=== PATIENT | male | born 1965 | race Caucasian/White ===

== ENCOUNTER 2018-04-02 18:48 | Emergency (ER) | payer BC, OTHER ==
[~2018-04-02] VITALS: Ht 167.6 cm; Wt 82.2 kg
[2018-04-02 18:58] VITALS: Ht 167.6 cm; Wt 82.2 kg
[2018-04-02] MEDS ORDERED: GELATIN SPONGE 12-7MM ONE (19:09)
[2018-04-02] MEDS ORDERED: LXP10 PO (19:16)
[2018-04-02] MEDS ORDERED: DIPHTHERIA/TETANUS/PERTUSSIS 0.5 ML SYR/VIAL IM. ONE (19:30)
[2018-04-02 19:55] VITALS: BP 117/75; PULSE 67; TEMP 36.8; O2SAT 95
[2018-04-02] MEDS ORDERED: NORCO 5/325MG HOME PACK PO ONE (20:00)
--- NOTE | 2018-04-02 21:48 | EMERGENCY ROOM VISIT NOTE ---
ED Visit Note First contact with patient: 19:01 Chief complaint: Left ring finger laceration HPI: This 53-year-old white male presents for evaluation of a laceration to the left ring finger. The patient was slicing cabbage for [employer] on a meat cutting wheel. He accidentally ran the dorsum of the ring finger tip through the wheel. This occurred around 1 PM. Bleeding was controlled with pressure. They deny any numbness, tingling, or loss of motion. No other complaints. Tetanus is believed to be out of-date. Pain is 5/10. His accompanies him today. Supplemental sheet was reviewed. Previous surgeries: None Medical history: Significant for rotator cuff disease and GERD, otherwise unremarkable Current Medications: Escitalopram Allergies: NKDA Tetanus: Greater than 10 years Family History: Noncontributory. Social History: Employed. . Positive [employer] use. REVIEW OF SYSTEM: HEENT: No dizziness, visual problems, hearing loss, or tinnitus. There is no difficulty swallowing and no oral lesions are present. PULMONARY: No cough, shortness of breath, sputum production or hemoptysis. CARDIOVASCULAR: No chest pain, palpitations, shortness of breath or peripheral edema. GASTROINTESTINAL: No diarrhea, constipation, nausea, vomiting, or abdominal pain. GENITOURINARY: No dysuria, frequency, urgency or nocturia. NEUROLOGIC: No weakness, muscle tenderness, epilepsy or history of neurological problems. MUSCULOSKELETAL: No history of joint tenderness/swelling. No history of arthritis or arthralgias. SKIN: No rashes or lesions. PSYCHIATRIC: No history of depression or mental illness. ENDOCRINE: No history of diabetes, thyroid disorders, or abnormal hair growth. Physical Exam: Vitals: Afebrile. Reviewed and filed in patient's chart General: Well-developed, well-nourished, middle-aged white male, in no acute distress. Obvious discomfort. He has sitting on the bed. Alert and oriented. Skin: Warm and dry with good turgor. No rashes. No ecchymosis or erythema. The patient is not diaphoretic. No abrasions. The patient has a partial nail avulsion on the dorsal surface of his left ring finger. Approximately one third of the nail his left. Nailbed is missing. Bleeding is vigorous. Pad is intact. He seems to have avoided the cuticle. I do not feel any exposed bone. Musculoskeletal: Patient has intact motor function at the MCP, PIP, and DIP joints. Neurologic: Gross sensation is intact across the fingertip by soft touch. Impression: Left ring finger laceration with nailbed involvement. Surface area is approximately 1 cm. Procedure: Informed oral consent was obtained for repair. Coban was applied to the finger and tourniquet fashion and left in place for approximately 60 seconds.Thorough inspection was performed. Wound has already been cleansed. Wound was covered with Gelfoam and sterile gauze in a pressure dressing. Bleeding was controlled. Hemostasis was achieved. Plan: Patient was educated regarding today's findings. Conservative care measures were discussed. He will leave the dressing alone for 3 days. On day 4 he will remove all loose dressings. He will evaluated every day thereafter and remove any loose dressing, trimming with small scissors. Avoid picking at the scab. This will fall off on its own in time. Cleanse the wound daily with soap and water starting on day 4. Ice and elevate intermittently as needed for discomfort. Tylenol and ibuprofen every 6 hours as needed for pain. Wound care handout was provided. Home pack for [place] 5 mg was provided for any breakthrough night pain. Driving precautions were given. He may shower. Avoid soaking or swimming for two weeks. Return to the ER for any acute changes or signs of infection. Note was provided to avoid heavy manual labor at work, including digging holes. Tetanus was updated using Adacel 0.5 mL IM. Current/Historical Medications Scheduled Escitalopram Oxalate (Escitalopram Oxalate), 10 MG PO DAILY Allergies Coded Allergies: No Known Allergies (Unverified , 04/02/18) Vital Signs Date Time Temp Pulse Resp B/P (MAP) Pulse Ox O2 Delivery O2 Flow Rate FiO2 04/02/18 19:55 36.8 67 18 117/75 95 04/02/18 18:58 36.8 67 18 115/74 95 Room Air Medications Administered Medications (Trade) Dose Ordered Sig/Carrillo Route Start Time Stop Time Status Last Admin Dose Admin Diphtheria/ Pertussis/Tetanus Vacc (Adacel Inj) 0.5 ml ONCE ONCE IM. 04/02/18 19:30 04/02/18 19:31 DC 04/02/18 19:29 0.5 ML Acetaminophen/ Hydrocodone Bitart ([place] 5/325mg Home Pack) 1 homepack UD ONCE PO 04/02/18 20:00 04/02/18 20:01 DC 04/02/18 19:58 1 [email or web address] Departure Information Referrals Ananth Kimbrough M.D. (PCP) Patient Instructions [facility]
== END 2018-04-02 19:56 | disposition home or self-care (01) ==
LOC: C.EDB 18:49 → C.EDD 19:56
DX: S61.325A Laceration with foreign body of left ring finger with damage to nail, initial encounter (principal); W29.8XXA Contact with other powered hand tools and household machinery, initial encounter; Y93.G1 Activity, food preparation and clean up; Z23 Encounter for immunization